=== PATIENT | male | born 1960 | race Caucasian/White ===

== ENCOUNTER → 2017-02-14 | Outpatient (CLI) | payer OTHER ==
[~2017-02-14] MED LIST: ASPI81TA28 PO; CEPH500C2 PO; SIMV5TAB2 PO
--- NOTE | 2017-02-14 07:44 | DIAGNOSTIC IMAGING REPORT ---
Ultrasound, aorta ULTRASOUND EXAM AAA SCREEN CLINICAL HISTORY: [id number] FAMILY HX AAA aneurysm TECHNIQUE: Ultrasound COMPARISON STUDY: None FINDINGS: Normal aorta. No evidence for aneurysm IMPRESSION: Normal study Electronically signed by: Shaji Gomez M.D. 02/14/2017 7:42 AM Dictated Date/Time: 02/14/2017 7:42 AM
[2017-02-14 09:42] LABS: ALT/SGPT 25 U/L (12-78); AST/SGOT 15 U/L (15-37); BLOOD UREA NITROGEN 18 mg/dl (7-18); BUN/CREATININE RATIO 16.6 (10-20); CARBON DIOXIDE 31 mmol/L (21-32); CHLORIDE 107 mmol/L (98-107); CHOLESTEROL 184 mg/dl (0-200); GLUCOSE 79 mg/dl (70-99); POTASSIUM 4.1 mmol/L (3.5-5.1); SODIUM 142 mmol/L (136-145); TRIGLYCERIDES 119 mg/dl (0-150); VERY LOW DENSITY LIPOPROT CALC 24 mg/dl
[2017-02-14 09:47] LABS: CHOLESTEROL/HDL RATIO 4.3; HDL CHOLESTEROL 43 mg/dl; LDL CHOLESTEROL CALCULATED 117 mg/dl
== END | disposition home or self-care (01) ==
LOC: C.ULTR 06:31
PROVIDERS: ATTEND Internal Medicine
DX: R73.9 Hyperglycemia, unspecified (principal); E78.5 Hyperlipidemia, unspecified; R97.20 Elevated prostate specific antigen [PSA]; Z82.49 Family history of ischemic heart disease and other diseases of the circulatory system

== ENCOUNTER → 2017-05-16 | Outpatient (CLI) | payer OTHER ==
[2017-05-16 17:26] LABS: BLOOD UREA NITROGEN 17 mg/dl (7-18); BUN/CREATININE RATIO 17.2 (10-20)
== END | disposition home or self-care (01) ==
LOC: C.LABBC 13:59
PROVIDERS: ATTEND Urology
DX: R97.20 Elevated prostate specific antigen [PSA] (principal)

== ENCOUNTER → 2017-05-23 | Outpatient (CLI) | payer OTHER ==
[~2017-05-23] MED LIST changes: +GADAVIST IV PRN
--- NOTE | 2017-05-23 09:17 | DIAGNOSTIC IMAGING REPORT ---
PROSTATE MRI COMBO CLINICAL HISTORY: 56 years-old Male presenting with ELEVATED PSA, 7.92. TECHNIQUE: Multisequence, multiplanar MR imaging of the prostate was performed before and after the administration of intravenous contrast. Additional postprocessing was performed on a separate [employer] workstation by the radiologist for 3-D volumetric segmentation of the prostate and contouring of region(s) of interest (TORI) for targeting. IV contrast: None. COMPARISON: None. FINDINGS: Prostate: The prostate measures 5.1 cm in transverse diameter (Office [employer] prostate boundary segmentation volume 67 mL). Moderate changes of benign prostatic hyperplasia are identified. The transition zone is T2 hypointense which degrades the assessment for prostatic neoplasm. A tiny utricular cyst is incidentally noted. Precontrast T1 weighted imaging demonstrates no evidence of hemorrhage or increased signal. Seminal vesicles normal. No suspicious lesion is apparent in the transition or peripheral zones. Bladder: Normal. Bowel: Visualized portion of the rectum normal. Peritoneum: No free fluid in the pelvis. Lymph nodes: No lymphadenopathy in the visualized portion of the pelvis. Vasculature: Iliac vessels patent. Osseous structures: Normal bone marrow signal intensity. IMPRESSION: 1. No suspicion lesion is identified in the prostate gland. 2. Moderate changes of benign prostatic hyperplasia are identified. Electronically signed by: Calvin Martínez M.D. 05/23/2017 9:16 AM Dictated Date/Time: 05/23/2017 9:00 AM
== END | disposition home or self-care (01) ==
LOC: C.MRIBC 06:52
PROVIDERS: ATTEND Urology
DX: R97.20 Elevated prostate specific antigen [PSA] (principal); N40.0 Benign prostatic hyperplasia without lower urinary tract symptoms

== ENCOUNTER → 2017-06-11 | Outpatient (CLI) | payer OTHER ==
[~2017-06-11] MED LIST changes: -GADAVIST IV PRN
== END | disposition home or self-care (01) ==
LOC: C.PATHSPEC 16:08
PROVIDERS: ATTEND Urology
DX: R97.20 Elevated prostate specific antigen [PSA] (principal)